=== PATIENT | female | born 1945 | race Caucasian/White ===

== ENCOUNTER → 2016-12-30 | Outpatient (CLI) | payer MEDICARE, OTHER | LOC: MW.CHPS 08:00 | PROVIDERS: ATTEND Physician Assistant | DX: B07.8 Other viral warts (principal) | CPT/HCPCS: 17110 ==

== ENCOUNTER → 2017-01-20 | Outpatient (CLI) | payer MEDICARE, OTHER | LOC: MW.CHPS 08:00 | PROVIDERS: ATTEND Physician Assistant | DX: B07.9 Viral wart, unspecified (principal) | CPT/HCPCS: G0463 ==